=== PATIENT | male | born 1975 | race Caucasian/White ===

== ENCOUNTER 2018-07-27 06:33 | Emergency (ER) | payer OTHER ==
[~2018-07-27] VITALS: Ht 185.4 cm; Wt 81.6 kg
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
[2018-07-27] MEDS: ONDANSETRON PF 4 MG/2 ML VIAL. IV ONE (07:10)
[2018-07-27] MEDS: IV NORMAL SALINE 1,000ML 1,000 ML IV ONE (07:11)
[2018-07-27] MEDS: HYDROmorphone PF 1 MG/ML DISP.SYRIN IV ONE (07:11)
[2018-07-27 07:18] LABS: BASO # 0.1 x10^3/uL (0.0-0.2); BASO % 1 % (0-3); EOS # 0.3 x10^3/uL (0.0-0.7); EOS % 3 % (0-3); HEMATOCRIT 42.8 % (39.0-53.0); HEMOGLOBIN 14.9 g/dL (13.0-17.5); LYMPH # 1.3 x10^3/uL (1.0-4.8); LYMPH % 11 % (24-48); MEAN CORPUSCULAR HEMOGLOBIN 34 pg (25-35); MEAN CORPUSCULAR HGB CONC 35 g/dL (31-37); MEAN CORPUSCULAR VOLUME 96 fL (79-100); MONO # 0.4 x10^3/uL (0.0-1.1); MONO % 4 % (0-9); NEUT # 9.2 x10^3uL (1.8-7.7); NEUT % 82 % (31-73); PLATELET COUNT 224 x10^3/uL (140-400); RED BLOOD COUNT 4.46 x10^6/uL (4.30-5.70); RED CELL DISTRIBUTION WIDTH 12.7 % (11.5-14.5); WHITE BLOOD COUNT 11.2 x10^3/uL (4.0-11.0)
[2018-07-27 07:24] LABS: CALCIUM 8.9 mg/dL (8.5-10.1); GFR 82.8; POTASSIUM 4.2 mmol/L (3.5-5.1)
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
[2018-07-27] MEDS: HYDROmorphone PF 2 MG/ML VIAL IV ONE (07:51)
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
[2018-07-27] MEDS ORDERED: OXYC-411 PO (08:38)
[2018-07-27 09:05] VITALS: BP 155/91
== END 2018-07-27 09:05 | disposition home or self-care (01) ==
LOC: ER 06:33
DX: S42.102A Fracture of unspecified part of scapula, left shoulder, initial encounter for closed fracture (principal); J98.11 Atelectasis; V20.4XXA Motorcycle driver injured in collision with pedestrian or animal in traffic accident, initial encounter; Y93.55 Activity, bike riding; Y92.488 Other paved roadways as the place of occurrence of the external cause; Y99.8 Other external cause status
CPT/HCPCS: 29105; 36415; 71250; 73030; 80048; 85025; 96374; 96375; 96376; 99285; J1170; J2405; J7030